=== PATIENT | male | born 1960 | race Hispanic/Latino ===

== ENCOUNTER 2016-10-02 14:54 | Emergency (ER) | payer OTHER ==
[~2016-10-02] VITALS: Ht 170.2 cm; Wt 81.6 kg
[2016-10-02 15:26] VITALS: BP 133/84
[2016-10-02] MEDS ORDERED: CRESTOR20 M2 PO (16:30)
[2016-10-02] MEDS ORDERED: PANTOPRAZOLE SO40 M1 PO (16:31)
[2016-10-02] MEDS ORDERED: IBUPROFEN600 M1 PO (16:31)
[2016-10-02] MEDS ORDERED: OMEGA-3 ACID ETH1 GM PO (16:31)
[2016-10-02] MEDS ORDERED: CLOBETASOL PROP15 G1 TOP (16:31)
[2016-10-02] MEDS ORDERED: CYCLOBENZAPRINE10 M1 PO (16:32)
--- NOTE | 2016-10-02 16:45 | ED ANKLE/FOOT INJURY COMPLAINT ---
History of Present Illness General Chief Complaint: Lower Extremity Problems Stated Complaint: "SOMETHING IS WRONG WITH MY FOOT" RIGHT Source: patient Exam Limitations: no limitations Vital Signs & Intake/Output Vital Signs & Intake/Output Vital Signs Date Time Temp Pulse Resp B/P Pulse O2 O2 Flow FiO2 Ox Delivery Rate 10/02 1526 97.9 92 22 133/84 98 Allergies Coded Allergies: No Known Allergies (10/02/16) Reconcile Medications Clobetasol Propionate 0.05 % OINT...G. 1 TRISTEN TOP PRN DERMATITIS (Reported) apply to affected area(s) Cyclobenzaprine HCl 10 MG TABLET 1 TAB PO BID MUSCLE RELAXER (Reported) Ibuprofen 600 MG TABLET 1 TAB PO Q6H PRN PAIN (Reported) with food Naproxen (Naprosyn) 500 MG TABLET 1 TAB PO BID PAIN [place]-3 Acid Ethyl Esters 1 GRAM CAPSULE 1 CAP PO BID CHOLESTEROL (Reported) Pantoprazole Sodium 40 MG TABLET.DR 1 TAB PO DAILY GI (Reported) Rosuvastatin Calcium (Crestor) 20 MG TABLET 1 TAB PO DAILY CHOLESTEROL ( Reported) Triage Note: PER PT SOMETHING WRONG WITH RT FOOT REDDENED AREA AT BASE OF GREAT TOE PAINFUL TO WALK. Triage Nurses Notes Reviewed? yes HPI: Patient presents for evaluation of severe right toe pain that began overnight about 5 days ago. Patient is unsure if it was gradual or sudden in onset. However since then he has had a constant severe pain and redness at the base of the right great toe the gets worse with ambulation and palpation. He denies any prior episodes such as this. Although patient denies any known trauma, he states that the night before onset of symptoms he had to kick his garbage can to free it up from the snow and ice. Past History Travel History Traveled to [place] past 21 day No Medical History Any Pertinent Medical History? see below for history EENT: NONE Cardiovascular: CHOL Gastrointestinal: NONE Hepatic: NONE Renal: NONE Musculoskeletal: NONE Psychiatric: NONE Endocrine: NONE Surgical History Surgical History: non-contributory Psychosocial History What is your primary language Cuban Tobacco Use: Never used Family History Hx Contributory? No Review of Systems Review of Systems Constitutional: Reports: no symptoms. EENTM: Reports: no symptoms. Respiratory: Reports: no symptoms. Cardiovascular: Reports: no symptoms. GI: Reports: no symptoms. Genitourinary: Reports: no symptoms. Musculoskeletal: Reports: no symptoms. Skin: Reports: no symptoms. Neurological/Psychological: Reports: no symptoms. Hematologic/Endocrine: Reports: no symptoms. Immunologic/Allergic: Reports: no symptoms. All Other Systems: Reviewed and Negative Physical Exam Physical Exam Leg/Knee/Thigh Left: SEE BELOW Comments: Gen.: Well-nourished, well-developed, no acute respiratory distress. Head: Normocephalic, atraumatic. Eyes: Normal inspection bilaterally Ears: Normal inspection bilaterally Nose: Normal inspection, nasal cannula in place Throat/mouth : Moist mucosa Neck: Supple, full range of motion, no goiter Heart: Regular rate and rhythm Lungs: Quiet respirations Back: Normal range of motion Extremities: Right foot: Redness and warmth and tenderness particularly with range of motion of the right metatarsal phalangeal joint. Neurologic: Cranial nerves grossly intact, speech is clear Skin: warm and dry Psychiatric: Calm, cooperative, no apparent delusions or hallucinations Progress Differential Diagnosis: gout, fracture, dislocation, sprain, contusion Plan of Care: Current Medications Sig/Krystal Start time Last Medication Dose Stop Time Status Admin Naproxen 500 MG ONCE ONE 10/02 1829 UNVr (Naprosyn) 10/02 1830 Diagnostic Imaging: Discussed w/RAD: CT Scan. Radiology Impression: PATIENT: LARISSA HELM PRESENT AGE : 56 PATIENT ACCOUNT NO: [id number] : 58 LOCATION: [facility] ORDERING PHYSICIAN: RUSSELL SCHULER MD SERVICE DATE: 10/02/16 EXAM TYPE: RAD - XRY-TOES, RIGHT EXAMINATION: XR TOES, RIGHT CLINICAL INFORMATION: Pain and erythema of the right first metatarsophalangeal joint. COMPARISON: None TECHNIQUE: 3 views of the right toes were obtained. FINDINGS: No fracture or dislocation. Alignment is anatomic. Joint spaces are maintained. The soft tissues are unremarkable. Incidental note of a bipartite medial sesamoid at the first metatarsophalangeal joint. IMPRESSION: No fracture or malalignment. No focal abnormality. DICTATED BY: JULIOCESAR JENKINS MD DATE/TIME DICTATED:1718 GUEST RELATION OFFICER:LISA DATE/TIME TRANSCRIBED:10/02/161718 CONFIDENTIAL, DO NOT COPY WITHOUT APPROPRIATE AUTHORIZATION. <Electronically signed in Other Vendor System> SIGNED BY: JULIOCESAR JENKINS MD 10/02/16 3332 Departure Departure Disposition: HOME OR SELF CARE Condition: Stable Clinical Impression Primary Impression: Gout Qualifiers: Gout site: foot Gout etiology: unspecified cause Laterality: right Chronicity: acute Qualified Code: M10.9 - Gout, unspecified Referrals: MICHAELA DEUTSCH APRN (PCP/Family) Additional Instructions: Rest, no exertion or heavy lifting. Follow-up with your primary care doctor for reevaluation of your toe pain at the end of the week. Naprosyn as prescribed. Return if any concerns or sudden worsening. Please note that there might be incidental findings in your evaluation that are unrelated to the current emergency department visit. Please notify your primary care doctor about this emergency department visit in order to obtain and review all of the testing performed so that these incidental findings can be monitored as needed. If you had an x-ray performed, please understand that some fractures may not be seen on the initial set of x-rays. If your symptoms persist you might need a repeat set of x-rays to check for such a fracture. If you had a laceration evaluated, please understand that foreign bodies such as glass or wood may not be visible to the naked eye or on plain x-rays. If the wound becomes red, swollen, increasingly more painful or if there is any drainage from the wound, please have it reevaluated by a physician for the possibility of a retained foreign body. Thank you for choosing the [facility] Emergency Department for your care. It was a pleasure to serve you today. Russell Schuler M.D. [facility] Departure Forms: Customer Survey General Discharge Information Prescriptions: Current Visit Scripts Naproxen (Naprosyn) 1 TAB PO BID #20 TAB
--- NOTE | 2016-10-02 17:25 | RADIOLOGY REPORT ---
EXAMINATION: XR TOES, RIGHT CLINICAL INFORMATION: Pain and erythema of the right first metatarsophalangeal joint. COMPARISON: None TECHNIQUE: 3 views of the right toes were obtained. FINDINGS: No fracture or dislocation. Alignment is anatomic. Joint spaces are maintained. The soft tissues are unremarkable. Incidental note of a bipartite medial sesamoid at the first metatarsophalangeal joint. IMPRESSION: No fracture or malalignment. No focal abnormality.
[2016-10-02] MEDS ORDERED: NAPROSYN500 M1 PO (18:20)
== END 2016-10-02 19:23 ==
LOC: ERH 14:54
DX: M10.9 Gout, unspecified (principal)
CPT/HCPCS: 73660-RT